=== PATIENT | male | born 1960 | race Caucasian/White ===

== ENCOUNTER → 2025-07-09 13:30 | Outpatient (REF) | payer BC, SELFPAY | LOC: RCS 13:30 | PROVIDERS: ATTENDING PHYSICIAN Internal Medicine Cardiovascular Disease; FAMILY PHYSICIAN Family Medicine | DX: E11.9 Type 2 diabetes mellitus without complications (principal); R06.09 Other forms of dyspnea | CPT/HCPCS: 93306 ==

== ENCOUNTER → 2025-07-21 07:21 | Outpatient (REF) | payer BC, SELFPAY | LOC: RCS 07:21 | PROVIDERS: ATTENDING PHYSICIAN Internal Medicine Cardiovascular Disease; FAMILY PHYSICIAN Family Medicine | DX: E11.9 Type 2 diabetes mellitus without complications (principal); R06.09 Other forms of dyspnea | CPT/HCPCS: 93017 ==